=== PATIENT | male | born 1995 | race Caucasian/White ===

== ENCOUNTER 2020-02-16 07:37 | Emergency (ER) | payer BC ==
[~2020-02-16] VITALS: Ht 170.2 cm; Wt 84.8 kg
--- NOTE | 2020-02-16 07:53 | NUR ---
Patient to ER bed 4 to gown for evaluation. Side rails up. Report given to DARIA Johnson.
--- NOTE | 2020-02-16 07:55 | NUR ---
Patient presented to ER C/O chemical exposaure. Patient A&ox4, ambulatory to ER, afebrile, skin pink and warm, pain 5/10, denies N/V/D. 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 Patient states he has tightnes in chest SOB and headache.
[2020-02-16 07:57] VITALS: BP_SYST 134
[2020-02-16] MEDS ORDERED: methylPREDNISolone SOD SUCC/PF 62.5 MG/ML VIAL IVP ONE (08:00)
[2020-02-16] MEDS ORDERED: IPRATROPIUM BROM 0.5 MG/2.5 ML VIAL.NEB (ATROVENT) INH ONE ×2 (08:00→10:00)
[2020-02-16] MEDS ORDERED: ALBUTEROL SULFATE 0.083% 2.5 MG/3 ML VIAL.NEB INH ONE ×2 (08:00→10:00)
--- NOTE | 2020-02-16 08:02 | NUR ---
ER Dr. Damon at bedside examining patient.
--- NOTE | 2020-02-16 08:03 | NUR ---
Called Poison Control at [phone] and spoke with Sherrill. Per recommendations: for exposure to Pure Bright Germicidal Ultra Bleach, recommending treating symptomatically with bronchodilators, humidified air, and nebulized sodium bicarb. Tylenol for pain control. and 4-[address] Damon notified. Will continue to monitor patient.
--- NOTE | 2020-02-16 08:27 | NUR ---
Spoke with Tommy pharmacist. For hour long treatment 12-15mL sodium bicarb. 2-3mL of sodium bicarb 8.4%.
[2020-02-16] MEDS ORDERED: SODIUM BICARBONATE 8.4% VIAL 50 MEQ/50 ML VIAL INJ ONE (08:30)
--- NOTE | 2020-02-16 08:36 | NUR ---
RT Kiersten at bedside for treatment.
[2020-02-16] MEDS ORDERED: SODIUM BICARBONATE 8.4% VIAL 50 MEQ/50 ML VIAL ONE (08:49)
[2020-02-16 08:50] LABS: BASOPHILS % (AUTO) 0.5 % (0.0-2.0); EOSINOPHILS % (AUTO) 0.3 % (0.0-4.0); HEMATOCRIT 45.5 % (36-54); HEMOGLOBIN 16.1 g/dL (14.0-18.0); LYMPHOCYTES # (AUTO) 2.5 K/uL (1.0-5.5); MEAN CORPUSCULAR HEMOGLOBIN 30 pg (27-31); MEAN CORPUSCULAR HGB CONC 35 % (32-36); MEAN CORPUSCULAR VOLUME 83 fL (79.0-98.0); MONOCYTES # (AUTO) 0.5 K/uL (0.0-1.0); MONOCYTES % (AUTO) 6.1 % (1.7-9.3); NEUTROPHILS # (AUTO) 5.7 K/uL (1.8-7.7); NEUTROPHILS % (AUTO) 65.1 % (40.0-70.0); PLATELET COUNT (AUTO) 275 K/uL (130-430); RED BLOOD CELL COUNT(AUTO) 5.45 MIL/uL (4.2-6.2); RED CELL DISTRIBUTION WIDTH 12.6 % (9.0-15.0); WHITE BLOOD COUNT (AUTO) 8.8 K/uL (4.8-10.8)
--- NOTE | 2020-02-16 08:50 | NUR ---
Spoke with Charles at poison control. She states CXR is a reasonable recommendation due to time of exposure and patient still remaining symptomatic. Confirmed with Dr. Damon CXR is already completed. Will continue to follow up and monitor.
[2020-02-16 09:06] LABS: CALCIUM 8.9 mg/dL (8.4-11.0); CREATININE 1.21 mg/dL (0.55-1.30); POTASSIUM 3.6 mmol/L (3.5-5.1)
[2020-02-16 09:10] LABS: ALBUMIN 4.2 g/dL (3.4-4.8); TOTAL BILIRUBIN 0.6 mg/dL (0.0-1.0)
[2020-02-16] MEDS ORDERED: methylPREDNISolone SOD SUCC/PF 62.5 MG/ML VIAL ONE (09:14)
[2020-02-16] MEDS ORDERED: ACETAMINOPHEN 500 MG TABLET PO ONE (09:15)
[2020-02-16 10:43] LABS: BILIRUBIN,URINE NEGATIVE (NEGATIVE); BLOOD, URINE NEGATIVE (NEGATIVE); CLARITY/URINE CLEAR (CLEAR); COLOR,URINE YELLOW (YELLOW); GLUCOSE,URINE NEGATIVE (NEGATIVE); KETONES,URINE NEGATIVE (NEGATIVE); LEUKOCYTE ESTERASE ,URINE TRACE (NEGATIVE); NITRITE, URINE NEGATIVE (NEGATIVE); PROTEIN URINE NEGATIVE (NEGATIVE); UROBILINOGEN,URINE 0.2 (0.2-1.0)
[2020-02-16 11:38] LABS: BACTERIA,URINE None Seen /HPF (None Seen); MUCUS,URINE 1+ /LPF (None Seen); RBC,URINE NONE SEEN /HPF (0-3)
[2020-02-16] MEDS ORDERED: NACL 0.9% 1,000 ML IV ONE (12:15)
[2020-02-16 13:30] VITALS: BP_SYST 141
--- NOTE | 2020-02-16 13:30 | NUR ---
Patient given written and verbal discharge instructions and verbalizes understanding. ER MD discussed with patient the results and treatment provided. Patient in stable condition. ID arm band removed. IV catheter removed intact and dressing applied, no active bleeding. Rx of PREDNISONE & ALBUTEROL given. Patient educated on pain management and to follow up with PMD. Pain Scale 3/10. Opportunity for questions provided and answered. Medication side effect fact sheet provided.
== END 2020-02-16 13:30 | disposition home or self-care (01) ==
LOC: SED 07:37
DX: T54.91XA Toxic effect of unspecified corrosive substance, accidental (unintentional), initial encounter (principal); J68.0 Bronchitis and pneumonitis due to chemicals, gases, fumes and vapors; Y92.89 Other specified places as the place of occurrence of the external cause
CPT/HCPCS: 36415; 71045; 80053; 81000; 83605; 83690; 85025; 87040; 87086; 94640; 96374; 99284; J2930; J7030; J7613